=== PATIENT | female | born 1995 | race Hispanic/Latino ===

== ENCOUNTER 2017-10-10 13:15 | Observation (INO) | payer OTHER ==
--- NOTE | 2017-10-10 13:54 | ED PDOC ---
HPI: CCC, URI, Sore Throat Time Seen by Provider: 10/10/17 13:53 Chief Complaint (Nursing): ENT Problem Chief Complaint (Provider): sore throat History Per: Patient Additional Complaint(s): 21-year-old female presents with sore throat 5 days. Patient was started on Medrol Dosepak and Augmentin 5 days ago but went to urgent care today because symptoms have not improved. Patient was sent from urgent care to ED for evaluation of possible peritonsillar abscess. Patient states that sore throat hurts more on the left side versus the right. She is tolerating liquids and solids and denies any drooling. Patient had a temp of 102 earlier but was given ibuprofen at urgent care facility prior to arrival to ED. PMD: none Past Medical History Reviewed: Historical Data, Nursing Documentation, Vital Signs Vital Signs: Last Vital Signs Temp 97 F L 10/10/17 13:28 Pulse 81 10/10/17 13:28 Resp 16 10/10/17 13:28 BP 108/74 10/10/17 13:28 Pulse Ox 97 10/10/17 16:44 - Medical History PMH: No Chronic Diseases - Surgical History Surgical History: No Surg Hx - Family History Family History: States: No Known Family Hx - Living Arrangements Living Arrangements: With Family - Social History Current smoker - smoking cessation education provided: No Alcohol: Social Drugs: Denies - Home Medications Home Medications: Ambulatory Orders Medication Instructions Recorded No Known Home Med 10/10/17 - Allergies Allergies/Adverse Reactions: Allergies Allergy/AdvReac Type Severity Reaction Status Date / Time No Known Allergies Allergy Verified 10/10/17 13:28 Review of Systems ROS Statement: Except As Marked, All Systems Reviewed And Found Negative Constitutional: Positive for: Fever ENT: Positive for: Throat Pain, Throat Swelling, Other (no drooling) Respiratory: Negative for: Cough Gastrointestinal: Negative for: Nausea, Vomiting Physical Exam - Reviewed Nursing Documentation Reviewed: Yes Vital Signs Reviewed: Yes - Physical Exam Appears: Positive for: Well, Non-toxic, No Acute Distress Skin: Negative for: Rash Eye Exam: Positive for: Normal appearance ENT: Positive for: Other (Unilateral swelling noted to the left tonsil suspicious for peritonsillar abscess, uvula midline, airway patent) Cardiovascular/Chest: Positive for: Regular Rate, Rhythm Respiratory: Positive for: Normal Breath Sounds. Negative for: Wheezing, Respiratory Distress Extremity: Positive for: Normal ROM Lymphatic: Positive for: Adenopathy (Bilateral anterior cervical lymphadenopathy ) Neurologic/Psych: Positive for: Alert, Oriented - Laboratory Results Result Diagrams: 10/10/17 14:47 10/10/17 14:47 Urine POC: Negative - ECG O2 Sat by Pulse Oximetry: 97 Pulse Ox Interpretation: Normal - Other Rad CT soft tissue neck with IV contrast X-Ray: Read By Radiologist X-Ray Interpretation: see below Medical Decision Making Medical Decision Makin21 year old with sore throat Plan: Urine test Blood culture Rapid strep Throat culture CBC CMP CT soft tissue neck with IV contrast IVF IV decadron CT: FINDINGS: The current study reveals enlargement of the left palatine tonsil which is somewhat heterogeneous. There is also a small approximately 9.8 x 4.0 mm elliptical shaped low-attenuation within the adjacent to the posterolateral margin left palatine tonsil that may represent a small peritonsillar abscess the left palatine tonsil encroaches medially into the oropharynx reducing the airway. There is also mild enlargement of the adenoids which encroach anteriorly also reducing the posterior nasopharyngeal airway as well. Multiple bilateral cervical lymph nodes are present within the jugulodigastric posterior cervical, submandibular and submental spaces. The largest in the left jugulodigastric region measuring approximately 14 mm and on the right approximately 13.6 mm. . The largest left posterior cervical space lymph node measures approximately 20 mm and on the right approximately 1.7 cm. Most of the remaining lymph nodes within the posterior cervical spaces and sub mandibular/submental regions are under cm or so in size. Minimal asymmetry of the vallecula likely due to some encroachment of lingual tonsils and possibly some residual and or retained secretion. Free margin of the epiglottis unremarkable. Aryepiglottic folds and pyriform sinuses are symmetric. The remaining airway is patent. GLANDS: Parotid and submandibular glands unremarkable. Normal size thyroid gland, without nodule. LYMPH NODES: As above CERVICAL SPINE: No fracture or focal lesion. VASCULAR STRUCTURES: Unremarkable. OTHER FINDINGS: None. IMPRESSION: There is enlargement of the left palatine tonsil consistent with tonsillitis. The small elliptical shaped low-attenuation focus apparently adjacent to the posterior margin of the left palatine tonsil may represent a tiny peritonsillar abscess. Enlarged bilateral cervical lymph nodes as described. Enlargement of the adenoids. Case was d/w ENT credit and collection manager, Dr. Pritchett. He states to start patient on IV clindamycin and he will see patient in a.m. Patient was admitted to medicine credit and collection manager, Dr. Murcia. Patient is aware of and agrees with admission. Disposition - Clinical Impression Clinical Impression: Peritonsillar abscess - Patient ED Disposition Is Patient to be Admitted: Yes - Disposition Disposition Time: 16:44 Condition: FAIR - Pt Status Changed To: Hospital Disposition Of: Inpatient - Admit Certification Admit to Inpatient:: After my assessment, the patient will require hospitalization for at least two midnights. This is because of the severity of symptoms shown, intensity of services needed, and/or the medical risk in this patient being treated as an outpatient. - POA Present On Arrival: None Results - Lab Results Lab Results: 10/10/17 10/10/17 10/10/17 15:05 14:47 14:47 WBC 6.9 RBC 4.15 Hgb 13.7 Hct 41.0 MCV 98.7 MCH 32.9 H MCHC 33.4 RDW 11.5 Plt Count 188 MPV 8.4 Neut % (Auto) 76.2 H Lymph % (Auto) 9.6 L [place]eller % (Auto) 13.9 H Eos % (Auto) 0.0 Baso % (Auto) 0.3 Neut # (Auto) 5.3 Lymph # (Auto) 0.7 L [place]eller # (Auto) 1.0 H Eos # (Auto) 0.0 Baso # (Auto) 0.0 Neutrophils % (Manual) 74 Band Neutrophils % 1 Lymphocytes % (Manual) 10 L Monocytes % (Manual) 14 H Plasma Cell % (Manual) 1 H Platelet Estimate Normal RBC Morphology Normal Sodium 139 Potassium 3.5 L Chloride 102 Carbon Dioxide 24 Anion Gap 17 BUN 15 Creatinine 0.7 Est GFR ( Amer) > 60 Est GFR (Non-Af Amer) > 60 Random Glucose 101 Calcium 9.0 Total Bilirubin 0.6 AST 37 H ALT 55 H Alkaline Phosphatase 63 Total Protein 7.7 Albumin 4.0 Globulin 3.7 Albumin/Globulin Ratio 1.1 Grp A Beta Strep Ag Negative
[2017-10-10] MEDS ORDERED: Sodium Chloride 0.9% 1,000 ML IV STA (14:33)
[2017-10-10 15:27] LABS: BASO % 0.3 % (0.0-2.0); HEMOGLOBIN 13.7 g/dL (12.0-16.0); LYMPH # 0.7 K/uL (1.0-4.3); LYMPH % 9.6 % (20.0-40.0); MEAN CELL VOLUME 98.7 fl (81.0-99.0); MEAN CORPUSCULAR HEMOGLOBIN 32.9 pg (27.0-31.0); MEAN CORPUSCULAR HGB CONC 33.4 g/dL (33.0-37.0); MEAN PLATELET VOLUME 8.4 fl (7.2-11.7); MONO % 13.9 % (0.0-10.0); NEUT # 5.3 K/uL (1.8-7.0); NEUT % 76.2 % (50.0-75.0); NRBC % 0.1 % (0.0-0.0); PLATELET COUNT 188 K/uL (130-400); RBC 4.15 Mil/uL (3.80-5.20); RED CELL DISTRIBUTION WIDTH 11.5 % (11.5-14.5); WHITE BLOOD COUNT 6.9 K/uL (4.8-10.8)
[2017-10-10] MEDS ORDERED: Iohexol 300 100 ML IJ ONE (15:29)
[2017-10-10] MEDS ORDERED: Sodium Chloride 0.9% 100 ML ONE (15:30)
[2017-10-10 15:33] LABS: ALB/GLOB RATIO 1.1 (1.0-2.1); ALT/SGPT 55 U/L (9-52); AST/SGOT 37 U/L (14-36); BLOOD UREA NITROGEN 15 mg/dl (7-17); GFR AFRICAN-AMERICAN > 60; GFR NON-AFRICAN AMERICAN > 60
[2017-10-10 15:54] LABS: BANDS 1 % (0-2); LYMPHOCYTE 10 % (20-50); MONOCYTE 14 % (0-10); NEUTROPHIL 74 % (42-75); PLASMACYTES 1 (0-0); PLATELET ESTIMATE NORMAL (NORMAL); TOTAL CELLS COUNTED 100
--- NOTE | 2017-10-10 16:23 | CT ---
PROCEDURE: CT scan neck dated 10/10/2017 HISTORY: Assess for VIBRATION ENGINEER COMPARISON: No prior TECHNIQUE: Contiguous helical/ transaxial the sections CT of the neck with intravenous contrast. Coronal and sagittal reformats generated. Intravenous contrast dose: 80 cc Omnipaque 300 contrast material. Radiation dose: DLP 354.71 mGy-cm This CT exam was performed using one or more of the following dose reduction techniques: Automated exposure control, adjustment of the mA and/or kV according to patient size, and/or use of iterative reconstruction technique. . FINDINGS: The current study reveals enlargement of the left palatine tonsil which is somewhat heterogeneous. There is also a small approximately 9.8 x 4.0 mm elliptical shaped low-attenuation within the adjacent to the posterolateral margin left palatine tonsil that may represent a small peritonsillar abscess the left palatine tonsil encroaches medially into the oropharynx reducing the airway. There is also mild enlargement of the adenoids which encroach anteriorly also reducing the posterior nasopharyngeal airway as well. . Multiple bilateral cervical lymph nodes are present within the jugulodigastric posterior cervical, submandibular and submental spaces. The largest in the left jugulodigastric region measuring approximately 14 mm and on the right approximately 13.6 mm. . The largest left posterior cervical space lymph node measures approximately 20 mm and on the right approximately 1.7 cm. Most of the remaining lymph nodes within the posterior cervical spaces and sub mandibular/submental regions are under cm or so in size. . Minimal asymmetry of the vallecula likely due to some encroachment of lingual tonsils and possibly some residual and or retained secretion. Free margin of the epiglottis unremarkable. Aryepiglottic folds and pyriform sinuses are symmetric. The remaining airway is patent. GLANDS: Parotid and submandibular glands unremarkable. Normal size thyroid gland, without nodule. . LYMPH NODES: As above CERVICAL SPINE: No fracture or focal lesion. . VASCULAR STRUCTURES: Unremarkable. OTHER FINDINGS: None. IMPRESSION: There is enlargement of the left palatine tonsil consistent with tonsillitis. The small elliptical shaped low-attenuation focus apparently adjacent to the posterior margin of the left palatine tonsil may represent a tiny peritonsillar abscess. Enlarged bilateral cervical lymph nodes as described. Enlargement of the adenoids.
[2017-10-10] MEDS ORDERED: Clindamycin 600mg/50ml NS 600 MG/50 ML BAG IVPB ONE (16:45)
[2017-10-10] MEDS ORDERED: Clindamycin 150 mg/mL Inj IVPB SCH (16:45)
[2017-10-10] MEDS: Clindamycin 600mg/50ml D5W 600 MG/50 ML VIAL IVPB SCH ×2 (16:57→22:56)
[2017-10-10] MEDS ORDERED: Lidocaine 1% w Epi 1:100,000 Inj INJ STA (18:03)
[2017-10-11] MEDS ORDERED: Lidocaine 1% w Epi 1:100,000 Inj INJ ONE (04:44)
[2017-10-11] MEDS: Clindamycin 600mg/50ml D5W 600 MG/50 ML VIAL IVPB SCH ×4 (04:53→23:08)
[2017-10-11] MEDS ORDERED: Lidocaine 1% 20 MG/2 ML PF AMP ONE (08:32)
--- NOTE | 2017-10-11 08:34 | CP.PCM.HP ---
History of Present Illness - History of Present Illness History of Present Illness: 21 yo ,f, no PMhx/o presents with sore throat 5 days. Patient was started on Medrol Dosepak and Augmentin 5 days ago but went to urgent care today because symptoms have not improved. Patient was sent from urgent care to ED for evaluation of possible peritonsillar abscess. Patient states that sore throat hurts more on the left side versus the right. She is tolerating liquids and solids and denies any drooling. Patient had a temp of 102 yesterday. Patient seen and examined bedside with Dr Murcia. Patient afebrile. Able to tolerate regular diet. Denies SOB, n,v,d, chest pain. PMD: Dr Iain Dominguez PMhx: None Allergies: NKDA Meds: none Surghx: none SHx: + ETOH social, neg rect drugs, cig Present on Admission - Present on Admission Any Indicators Present on Admission: No History of DVT/PE: No History of Uncontrolled Diabetes: No Urinary Catheter: No Review of Systems - Review of Systems All systems: reviewed and no additional remarkable complaints except - EENT Nose/Mouth/Throat: Odynophagia, Sore Throat, Throat Swelling Past Patient History - Past Medical History & Family History Past Medical History?: No - Past Social History Smoking Status: Never Smoked - CARDIAC Hx Cardiac Disorders: No - PULMONARY Hx Respiratory Disorders: No - NEUROLOGICAL Hx Neurological Disorder: No - HEENT Hx HEENT Problems: No - RENAL Hx Chronic Kidney Disease: No - ENDOCRINE/METABOLIC Hx Endocrine Disorders: No - HEMATOLOGICAL/ONCOLOGICAL Hx Blood Disorders: No Hx AIDS: No Hx Human Immunodeficiency Virus (HIV): No - INTEGUMENTARY Hx Dermatological Problems: No - MUSCULOSKELETAL/RHEUMATOLOGICAL Hx Musculoskeletal Disorders: No Hx Falls: No - GENITOURINARY/GYNECOLOGICAL Hx Genitourinary Disorders: No - PSYCHIATRIC Hx Psychophysiologic Disorder: No Hx Substance Use: No - SURGICAL HISTORY Hx Surgeries: No - ANESTHESIA Hx Anesthesia: No Meds Allergies/Adverse Reactions: Allergies Allergy/AdvReac Type Severity Reaction Status Date / Time No Known Allergies Allergy Verified 10/10/17 13:28 Physical Exam - Constitutional Appears: Non-toxic, No Acute Distress - Head Exam Head Exam: ATRAUMATIC, NORMOCEPHALIC - Eye Exam Eye Exam: Normal appearance - ENT Exam ENT Exam: Mucous Membranes Moist Additional comments: Oropharynx: there is left tonsil swelling with mild yellowish exudate, that is deviated to the center, no uvula swelling. no trismus - Neck Exam Neck exam: Positive for: Full Rom. Negative for: Tenderness - Respiratory Exam Respiratory Exam: Clear to Auscultation Bilateral. absent: Rales, Rhonchi, Stridor - Cardiovascular Exam Cardiovascular Exam: REGULAR RHYTHM, +S1, +S2 - GI/Abdominal Exam GI & Abdominal Exam: Normal Bowel Sounds, Soft. absent: Guarding, Tenderness - Extremities Exam Extremities exam: Positive for: full ROM, normal inspection. Negative for: pedal edema - Neurological Exam Neurological exam: Alert, Oriented x3 - Psychiatric Exam Psychiatric exam: Normal Affect, Normal Mood - Skin Skin Exam: Normal Color Results - Vital Signs Recent Vital Signs: Last Vital Signs Temp 97.5 F L 10/11/17 08:24 Pulse 48 L 10/11/17 08:24 Resp 20 10/11/17 08:24 BP 100/67 10/11/17 08:24 Pulse Ox 99 10/11/17 08:24 - Labs Result Diagrams: 10/10/17 14:47 10/10/17 14:47 Labs: Laboratory Results - last 24 hr 10/10/17 10/10/17 10/10/17 14:47 14:47 15:05 WBC 6.9 RBC 4.15 Hgb 13.7 Hct 41.0 MCV 98.7 MCH 32.9 H MCHC 33.4 RDW 11.5 Plt Count 188 MPV 8.4 Neut % (Auto) 76.2 H Lymph % (Auto) 9.6 L Lynn % (Auto) 13.9 H Eos % (Auto) 0.0 Baso % (Auto) 0.3 Neut # (Auto) 5.3 Lymph # (Auto) 0.7 L Lynn # (Auto) 1.0 H Eos # (Auto) 0.0 Baso # (Auto) 0.0 Neutrophils % (Manual) 74 Band Neutrophils % 1 Lymphocytes % (Manual) 10 L Monocytes % (Manual) 14 H Plasma Cell % (Manual) 1 H Platelet Estimate Normal RBC Morphology Normal Sodium 139 Potassium 3.5 L Chloride 102 Carbon Dioxide 24 Anion Gap 17 BUN 15 Creatinine 0.7 Est GFR ( Amer) > 60 Est GFR (Non-Af Amer) > 60 Random Glucose 101 Calcium 9.0 Total Bilirubin 0.6 AST 37 H ALT 55 H Alkaline Phosphatase 63 Total Protein 7.7 Albumin 4.0 Globulin 3.7 Albumin/Globulin Ratio 1.1 Grp A Beta Strep Ag Negative Assessment & Plan - Assessment and Plan (Free Text) Plan: 21 yo ,f, no PMhx/o presents with sore throat 5 days admitted for tonsillitis with left side peritonsillar abscess Assessment /Plan 1) Peritonsillar Abscess secondary to acute tonsillitis left side -Ct neck soft tissue w/contrast: There is a small approximately 9.8 x 4.0 mm elliptical shaped low-attenuation within the adjacent to the posterolateral margin left palatine tonsil that may represent a small peritonsillar abscess the left palatine tonsil encroaches medially into the oropharynx reducing the airway. -s/p Augmentin treatmen failed -Clindamycin Iv -dexamethasone IV 10 mg daily -Ent consult suggested 2) DVT Prophylaxis Lovenox 40 mg sc daily
[2017-10-11] MEDS ORDERED: Dexamethasone 10 MG in Sodium Chloride 0.9% 50 ML IVPB SCH (12:45)
[2017-10-11] MEDS ORDERED: Dexamethasone 4 mg/1 ml IVP ONE (13:00)
[2017-10-11] MEDS ORDERED: Dexamethasone 4 mg/1 ml IVP SCH (13:00)
[2017-10-11 16:40] VITALS: RESP 18
[2017-10-11] MEDS ORDERED: Enoxaparin 40 mg Syringe SC SCH (16:45)
--- NOTE | 2017-10-11 20:58 | OP ---
PROCEDURE DATE: 10/11/2017 PREOPERATIVE DIAGNOSIS: Left peritonsillar abscess. POSTOPERATIVE DIAGNOSIS: Left peritonsillar abscess. PROCEDURE: Incision and drainage of left peritonsillar abscess. SIGNIFICANT FINDINGS: Left peritonsillar abscess. DESCRIPTION OF PROCEDURE: The patient was placed in seated position. The left peritonsillar area was injected with lidocaine with epinephrine and #11 blade was used to make an incision in the left peritonsillar area, clamp dissection was done and pus was noted to be coming out. Loculations were broken with a clamp. Bleeding was controlled with time. The patient tolerated the procedure well. Wallace Pritchett MD MTDD
[2017-10-11] MEDS: Enoxaparin 40 mg Syringe SC SCH (21:10)
[2017-10-12] MEDS: Clindamycin 600mg/50ml D5W 600 MG/50 ML VIAL IVPB SCH ×2 (04:49→12:07)
[2017-10-12 08:01] VITALS: BP 101/65; PULSE 82; TEMP 97.7; O2SAT 98
[2017-10-12] MEDS: Enoxaparin 40 mg Syringe SC SCH (08:53)
--- NOTE | 2017-10-12 10:00 | CP.PCM.DIS ---
Provider - Provider Date of Admission: 10/10/17 16:44 Attending physician: Marcos Murcia MD Time Spent in preparation of Discharge (in minutes): 20 Diagnosis - Discharge Diagnosis (1) Peritonsillar abscess Status: Resolved Comment: - s/p I&D day 1. -s/p Clindamycin Iv. -s/p dexamethasone IV 10 mg daily. -discharged with clindamycin for 7 days and probiotics Hospital Course - Lab Results Lab Results: Micro Results 10/10/17 14:47 Blood-Venous Blood Culture - Preliminary NO GROWTH AFTER 24 HOURS 10/10/17 14:47 Blood-Venous Blood Culture - Preliminary NO GROWTH AFTER 24 HOURS Most Recent Lab Values WBC 6.9 K/uL (4.8-10.8) 10/10/17 14:47 RBC 4.15 Mil/uL (3.80-5.20) 10/10/17 14:47 Hgb 13.7 g/dL (12.0-16.0) 10/10/17 14:47 Hct 41.0 % (34.0-47.0) 10/10/17 14:47 MCV 98.7 fl (81.0-99.0) 10/10/17 14:47 MCH 32.9 pg (27.0-31.0) H 10/10/17 14:47 MCHC 33.4 g/dL (33.0-37.0) 10/10/17 14:47 RDW 11.5 % (11.5-14.5) 10/10/17 14:47 Plt Count 188 K/uL (130-400) 10/10/17 14:47 MPV 8.4 fl (7.2-11.7) 10/10/17 14:47 Neut % (Auto) 76.2 % (50.0-75.0) H 10/10/17 14:47 Lymph % (Auto) 9.6 % (20.0-40.0) L 10/10/17 14:47 [place] % (Auto) 13.9 % (0.0-10.0) H 10/10/17 14:47 Eos % (Auto) 0.0 % (0.0-4.0) 10/10/17 14:47 Baso % (Auto) 0.3 % (0.0-2.0) 10/10/17 14:47 Neut # (Auto) 5.3 K/uL (1.8-7.0) 10/10/17 14:47 Lymph # (Auto) 0.7 K/uL (1.0-4.3) L 10/10/17 14:47 [place] # (Auto) 1.0 K/uL (0.0-0.8) H 10/10/17 14:47 Eos # (Auto) 0.0 K/uL (0.0-0.7) 10/10/17 14:47 Baso # (Auto) 0.0 K/uL (0.0-0.2) 10/10/17 14:47 Neutrophils % (Manual) 74 % (42-75) 10/10/17 14:47 Band Neutrophils % 1 % (0-2) 10/10/17 14:47 Lymphocytes % (Manual) 10 % (20-50) L 10/10/17 14:47 Monocytes % (Manual) 14 % (0-10) H 10/10/17 14:47 Plasma Cell % (Manual) 1 (0-0) H 10/10/17 14:47 Platelet Estimate Normal (NORMAL) 10/10/17 14:47 RBC Morphology Normal (NORMAL) 10/10/17 14:47 Sodium 139 mmol/l (132-148) 10/10/17 14:47 Potassium 3.5 MMOL/L (3.6-5.0) L 10/10/17 14:47 Chloride 102 mmol/L (98-107) 10/10/17 14:47 Carbon Dioxide 24 mmol/L (22-30) 10/10/17 14:47 Anion Gap 17 (10-20) 10/10/17 14:47 BUN 15 mg/dl (7-17) 10/10/17 14:47 Creatinine 0.7 mg/dl (0.7-1.2) 10/10/17 14:47 Est GFR ( Amer) > 60 10/10/17 14:47 Est GFR (Non-Af Amer) > 60 10/10/17 14:47 Random Glucose 101 mg/dL (65-105) 10/10/17 14:47 Calcium 9.0 mg/dL (8.4-10.2) 10/10/17 14:47 Total Bilirubin 0.6 mg/dl (0.2-1.3) 10/10/17 14:47 AST 37 U/L (14-36) H 10/10/17 14:47 ALT 55 U/L (9-52) H 10/10/17 14:47 Alkaline Phosphatase 63 U/L (38-126) 10/10/17 14:47 Total Protein 7.7 G/DL (6.3-8.2) 10/10/17 14:47 Albumin 4.0 g/dL (3.5-5.0) 10/10/17 14:47 Globulin 3.7 gm/dL (2.2-3.9) 10/10/17 14:47 Albumin/Globulin Ratio 1.1 (1.0-2.1) 10/10/17 14:47 Grp A Beta Strep Ag Negative (NEGATIVE) 10/10/17 15:05 - Hospital Course Hospital Course: 21 yo ,f, no PMhx/o admitted for left side peritonsilar abscess s/p I& D day 1. Patient during admission with IV abx clindamycin doing well. Patient seen by ENT yesterday. I& D done. Procedure well tolerated. Patient afebrile. Patient seen bedside with Dr Murcia. Patient cleared to be discharged with clindamycin 300 mg q8h x 7 days and probiotics. Follow up in 7 days with PMD Discharge Exam - Head Exam Head Exam: ATRAUMATIC, NORMOCEPHALIC - Eye Exam Eye Exam: EOMI, Normal appearance - ENT Exam ENT Exam: Mucous Membranes Moist Additional comments: left side supratonsil area wound 2/2 I&D, dry, no discharge, no bleeding. - Respiratory Exam Respiratory Exam: Clear to PA & Lateral. absent: Rales, Wheezes - Cardiovascular Exam Cardiovascular Exam: REGULAR RHYTHM, +S1, +S2 - GI/Abdominal Exam GI & Abdominal Exam: Normal Bowel Sounds. absent: Guarding, Rebound - Neurological Exam Neurological exam: Alert, Oriented x3 - Psychiatric Exam Psychiatric exam: Normal Affect, Normal Mood - Skin Skin Exam: Normal Color Discharge Plan - Discharge Medications Prescriptions: Clindamycin [Cleocin] 300 mg PO Q8 #21 cap Ibuprofen [Motrin Tab] 600 mg PO Q6 PRN #30 tab PRN Reason: fever Lactobacillus Acidophilus [Bacid Acidophilus] 1 cap PO DAILY #14 cap - Follow Up Plan Condition: FAIR Instructions: Peritonsillar Abscess, Adult (DC), Abscess Incision and Drainage (DC) Additional Instructions: follow up with Primary MD 7-10 days -continue Clindamycin 300 mg Q8h x 7 days -Probiotics 1 tab Q 12h x 7 days Referrals: Marcos Murcia MD [Staff Provider] - Wallace Pritchett MD [Staff Provider] -
== END 2017-10-12 12:05 | disposition home or self-care (01) ==
LOC: H.ER 13:15 → H.ERHOLD 16:44 → H.MEDSURG1 18:10
PROVIDERS: ADMIT Internal Medicine; ATTEND Internal Medicine
DX: J36 Peritonsillar abscess (principal)
CPT/HCPCS: 42700; 70491; 80053; 81025; 85025; 87040; 87070; 87430; 96361; 96365; 96366; 96372; 96375; 96376; 99284; G0378; J1100; J1650; J7040; Q9967